=== PATIENT | female | born 1985 | race Caucasian/White ===

== ENCOUNTER 2020-05-24 11:06 | Emergency (ER) | payer OTHER ==
--- NOTE | 2020-05-24 11:22 | TELE ---
HPI Do you have fever,cough or shortness of breath?: No - General Reason For Visit: COVID 19 TESTING History Source: Patient Past History - Travel History Traveled outside of the country in the last 30 days: No Close contact w/someone who was outside of country & ill: No - Medical History Anemia: No Asthma: Yes (seasonal asthma) Cancer: No Cardiac Disorders: No Hx Myocardial Infarction: No CVA: No COPD: No CHF: No DVT: No Dementia: No Diabetes: No Hx Glaucoma: No Dialysis: No GI Disorders: No Disorders: No HTN: No Hypercholesterolemia: No HIV: No Kidney Stones: No Liver Disease: No Psychiatric Problems: No Seizures: No Thyroid Disease: No Lung CA: No - Surgical History Abdominal Surgery: No Appendectomy: No Cardiac Surgery: No Cholecystectomy: No Gastric Stapling: No GI Surgery: No Lung Surgery: No Neurologic Surgery: No Orthopedic Surgery: No Review of Systems - Review of Systems Constitutional: No: Chills, Fever, Night Sweats Respiratory: No: Cough *Physical Exam - Physical Exam Respiratory/Chest: negative: Respiratory Distress Discharge Diagnosis at time of Disposition: COVID-19 virus test result unknown Diagnosis at time of Disposition: (Ruled Out): Encounter for preprocedure screening laboratory testing for severe acute respiratory syndrome coronavirus 2 (SARS-CoV-2) - Referrals Follow-up Referral(s): Sam Radford MD [Staff Physician] - - Patient Instructions - Discharge Disposition: HOME Condition at time of Disposition: Stable
== END 2020-05-24 11:22 | disposition home or self-care (01) ==
LOC: JVIRT 11:06
DX: Z11.59 Encounter for screening for other viral diseases (principal)
CPT/HCPCS: Q3014-GT; U0003

== ENCOUNTER 2020-07-14 18:09 | Emergency (ER) | payer BC ==
--- NOTE | 2020-07-14 21:02 | TELE ---
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[facility] ) Past History - Medical History Anemia: No Asthma: Yes (seasonal asthma) Cancer: No Cardiac Disorders: No CVA: No COPD: No CHF: No DVT: No Dementia: No Diabetes: No Dialysis: No GI Disorders: No Disorders: No HTN: No Hypercholesterolemia: No Kidney Stones: No Liver Disease: No Psychiatric Problems: No Seizures: No Thyroid Disease: No Lung CA: No - Surgical History Abdominal Surgery: No Appendectomy: No Cardiac Surgery: No Cholecystectomy: No Gastric Stapling: No GI Surgery: No Lung Surgery: No Neurologic Surgery: No Orthopedic Surgery: No Review of Systems - Review of Systems Constitutional: No: Fever Respiratory: No: Cough Discharge Diagnosis at time of Disposition: Encounter for screening laboratory testing for COVID-19 virus - Referrals - Patient Instructions - Discharge Disposition: HOME Condition at time of Disposition: Stable
== END 2020-07-14 21:02 | disposition home or self-care (01) ==
LOC: JVIRT 18:09
DX: Z11.59 Encounter for screening for other viral diseases (principal)
CPT/HCPCS: C9803; Q3014-GT; U0003

== ENCOUNTER 2022-06-05 11:52 | Emergency (ER) | payer BC, OTHER ==
[2022-06-05 12:14] VITALS: BP 123/72; PULSE 83; RESP 18; TEMP 98.3; BMI 36.6
[2022-06-05] MEDS ORDERED: SODIUM CHLORIDE 1,000 ML IV STA (12:52)
[2022-06-05 13:07] LABS: HEMATOCRIT 37.8 % (32.4-45.2); MCHC 34.3 g/dl (32.0-36.0); MEAN CELL VOLUME 87.5 fl (80-96); MEAN PLT VOLUME 8.1 fl (7.5-11.1); PLATELET COUNT 276.2 10^3/uL (134-434); RBC 4.32 10^6/uL (3.60-5.2); WHITE BLOOD COUNT 7.5 10^3/uL (4.0-10.8)
[2022-06-05 13:24] LABS: ALBUMIN 3.9 g/dl (3.4-5.0); ALK PHOS 59 U/L (45-117); ANION GAP 12 MMOL/L (8-16); BILIRUBIN,TOTAL 0.8 mg/dl (0.2-1); CHLORIDE 103 mmol/L (98-107); CO2 23 mmol/L (21-32); CREATININE 0.6 mg/dl (0.55-1.3); GLUCOSE,RANDOM 92 mg/dl (74-106); SGOT/AST 16 U/L (15-37); SGPT/ALT 18 U/L (13-61); SODIUM 138 mmol/L (136-145); TOT PROT 6.4 g/dl (6.4-8.2)
== END 2022-06-05 15:37 | disposition home or self-care (01) ==
LOC: FER 11:52
DX: S92.355A Nondisplaced fracture of fifth metatarsal bone, left foot, initial encounter for closed fracture (principal); W01.0XXA Fall on same level from slipping, tripping and stumbling without subsequent striking against object, initial encounter
CPT/HCPCS: 36415; 73610-TC-LT-FY; 73630-TC-LT; 80053; 84484; 85027; 93005; 99285-25